=== PATIENT | female | born 1965 | race Caucasian/White ===

== ENCOUNTER 2023-07-14 18:08 | Emergency (ER) | payer MEDICAID ==
[~2023-07-14] VITALS: Ht 160 cm; Wt 80.1 kg
[~2023-07-14 18:08] MED LIST: AGG25C OR; BACL10TA OR; DIAZ2TAB2; FENO5TAB OR; GABA300C; GLIP10TA9 OR; IBUP-1456 OR; METF-371 OR; SIMV80TA2; TOPI50TA32 OR; [UNRECOGNIZED DRUG - OTHER]
[2023-07-14 18:15] VITALS: BP 130/64; PULSE 83; RESP 18; TEMP 98.7
[2023-07-14 19:59] VITALS: O2SAT 97
[2023-07-14] MEDS ORDERED: ONDANSETRON ODT 4 MG TAB PO ONE (21:00)
[2023-07-14] MEDS ORDERED: HYDROcodone-ACET 10/325MG TAB PO ONE (21:00)
== END 2023-07-14 23:00 | disposition home or self-care (01) ==
LOC: ER 18:08
DX: S62.666A Nondisplaced fracture of distal phalanx of right little finger, initial encounter for closed fracture (principal); E11.9 Type 2 diabetes mellitus without complications; E78.5 Hyperlipidemia, unspecified; I10 Essential (primary) hypertension; Z79.899 Other long term (current) drug therapy; Z98.890 Other specified postprocedural states; W01.0XXA Fall on same level from slipping, tripping and stumbling without subsequent striking against object, initial encounter; Y93.89 Activity, other specified; Y92.89 Other specified places as the place of occurrence of the external cause; Y99.8 Other external cause status
CPT/HCPCS: 26770; 73110; 73130; 73140; 99284; Q0162

== ENCOUNTER 2024-12-03 18:15 | Emergency (ER) | payer MEDICAID ==
[~2024-12-03] VITALS: Ht 160 cm; Wt 87.0 kg
--- NOTE | 2024-12-03 19:25 | DVH ---
EXAM: XY R WRIST 2 VIEW XRAY CLINICAL HISTORY: fall COMPARISON: XY R WRIST 3+ VIEW XRAY on DOS: 07/14/23 TECHNIQUE: XY R WRIST 2 VIEW XRAY Findings/Impression: 2 views of the right wrist. Nondisplaced fracture of the distal radius. There is no evidence of dislocation, blastic, or lytic lesions. No radiopaque foreign bodies. Mild soft tissue edema.
--- NOTE | 2024-12-03 20:04 | ED.PDOC ---
Musculoskeletal HPI Comments 59-year-old female complaining of right wrist pain. Patient states she had a trip and fall approximate six weeks ago. She had initial x-rays done at primary care doctor's office, results possibly not transmitted. Patient was fracture of the distal radius. Patient came in today for possible splint and ortho follow up. Patient reports she has been having continuous pain in the right wrist and she was not been using her/moving her wrist. Chief Complaint: Upper Extremity Time Seen by MD: 18:30 Primary Care Provider: ERIC Reviewed Notes: Nurses Notes Allergies: Coded Allergies: NO KNOWN ALLERGIES (Verified , 07/14/23) Home Meds Reported Medications Aspirin-Dipyridamole (Aggrenox) 1 Cap Cap, 1 CAP OR BID 09/04/11 Baclofen (Baclofen) 10 Mg Tab, 10 MG OR TID 09/04/11 Ibuprofen (Ibuprofen) 800 Mg Tab, 800 MG OR TIDP 09/04/11 Fenofibrate (Tricor) 145 Mg Tab, 145 MG OR DAILY 09/04/11 Glipizide (Glipizide) 10 Mg Tab, 10 MG OR BID 09/04/11 Metformin Hydrochloride (Metformin Hcl) 850 Mg Tab, 850 MG OR TID 09/04/11 Topiramate (Topamax) 50 Mg Tab, 50 MG OR BID 09/04/11 Simvastatin (Zocor) 80 Mg Tab 09/04/11 [Donezipil] No Conflict Check, 10 MG HS 09/04/11 Diazepam (Diazepam) 2 Mg Tab, TID 09/04/11 Gabapentin (Neurontin) 300 Mg Cap, TID 06/26/10 Information Source: Patient Mode of Arrival: Ambulatory Past Medical History PAST MEDICAL HISTORY: DM, High Lipids, HTN Surgical History: Tubal Ligation 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 Pertinent HANDLE SANDER OPERATOR History Family History Family History: Unknown Social History Smoker: Non-Smoker Alcohol: Denies ETOH Use Drugs: Denies Drug Use Lives In: Home Constitutional: denies: chills, diaphoresis, fatigue, fever, malaise, sweats, weakness, others EENTM: denies: blurred vision, double vision, ear bleeding, ear discharge, ear drainage, ear pain, ear ringing, eye pain, eye redness, hearing loss, mouth chana n, mouth swelling, nasal discharge, nose bleeding, nose congestion, nose pain, photophobia, tearing, throat pain, throat swelling, voice changes, others Respiratory: denies: cough, hemoptysis, orthopnea, SOB at rest, shortness of breath, SOB with excertion, stridor, wheezing, others Cardiovascular: denies: chest pain, dizzy spells, diaphoresis, Dyspnea on exertion, edema, irregular heart beat, left arm pain, lightheadedness, palpitations, PND, syncope, others Gastrointestinal: denies: abdomen distended, abdominal pain, blood streaked bowels, constipated, diarrhea, dysphagia, difficulty swallowing, hematemesis, melena, nausea, poor appetite, poor fluid intake, rectal bleeding, rectal pain, vomiting, others Genitourinary: denies: abnormal vagina bleeding, burning, dyspareunia, dysuria, flank pain, frequency, hematuria, incontinence, pain, , vagina discharge, urgency, others Neurological: denies: dizziness, fainting, headache, left sided numbness, left sided weakness, numbness, paresthesia, pre-existing deficit, right sided numbness, right sided weakness, seizure, speech problems, tingling, tremors, weakness, others Musculoskeletal: reports: muscle pain, muscle stiffness; denies: back pain, gout, joint pain, joint swelling, neck pain, others Integumetry: denies: bruises, change in color, change in hair/nails, dryness, laceration, lesions, lumps, rash, wounds, others Allergic/Immunocompromised: denies: Difficulty Healing, Frequent Infections, Hives, Itching, others Hematologic/Lymphatic: denies: anemia, blood clots, easy bleeding, easy bruising, swollen glands, others Physical Exam General Appearance: No Apparent Distress, Normal HEENT: Normal ENT Inspection, Pharynx Normal, TMs Normal Neck: Full Range of Motion, Non-Tender, Normal, Normal Inspection Respiratory: Chest Non-Tender, Lungs Clear, No Accessory Muscle Use, No Respiratory Distress, Normal Breath Sounds Cardiovascular: No Edema, No JVD, No Murmur, No Gallop, Normal Peripheral Pulses, Regular Rate/Rhythm Breast Exam: Deferred Gastrointestinal: No Organomegaly, Non Tender, No Pulsatile Mass, Normal Bowel Sounds, Soft Genitalia: Deferred Pelvic: Deferred Rectal: Deferred Extremities: No calf tenderness, Normal capillary refill, Normal inspection, Normal range of motion, Non-tender, No pedal edema Musculoskeletal : Location: Right Extremity Location: Wrist (Right wrist tender to palpation over the distal radius, no obvious deformity. Limited range of motion due to pain. Distal circulation motor skills intact.) Apperance: Normal Neurologic: Alert, transverse abdominal muscle surgeon II-XII nml as Tested, No Motor Deficits, Normal Affect, Normal Mood, No Sensory Deficits Cerebellar Function: Normal Reflexes: Normal Skin: Dry, Normal Color, Warm Peripheral Pulses: 2+ carotid (R), 2+ carotid (L) Lymphatic: No Adenopathy Was a procedure done? Was a procedure done?: No Differential Diagnosis EXT Differential Diagnosis: Fracture, Sprain, Dislocation, Laceration X-Ray, Labs, Meds, VS Vital Signs Date Time Temp Pulse Resp B/P (MAP) Pulse Ox O2 Delivery O2 Flow Rate FiO2 12/03/24 18:28 98.7 82 18 152/59 (90) 96 X-Ray, Labs, Meds, VS Comment Spoke with Dr. Nagel, print support specialist, he will see patient on Saturday, he recommends CT of the wrist. Patient will be placed in velcro wrist splint. Patient states she does have pain medications at home for previous injuries Time of 1ST Reevaluation: 20:04 Reevaluation 1ST: Unchanged Patient Education/Counseling: Diagnosis, Treatment, Need For Follow Up (Follow up with the doctor philip on Saturday for further evaluation.) Family Education/Counseling: Diagnosis Departure 1 Departure Time of Disposition: 20:02 Impression: Primary Impression: Distal radius fracture, right Qualified Codes: S52.531A - Colles' fracture of right radius, initial encounter for closed fracture Disposition: HOME / SELF CARE / HOMELESS Condition: Fair Comments Follow up with print support specialist on Saturday Critical Care Note Critical Care Time?: No Stability Stability form required: No Heart Score Heart Score: Heart Score Response (Comments) Value History N/A 0 EKG N/A 0 Age N/A 0 Risk Factors N/A 0 Troponin N/A 0 Total 0 AVINASH PERES Dec 03, 2024 20:04
[2024-12-03 20:10] VITALS: BP 150/63; PULSE 77; RESP 18; TEMP 97.6; O2SAT 95
--- NOTE | 2024-12-03 20:39 | DVH ---
EXAM: CT CT R WRIST WO CONTRAST INDICATION: fall EXAM DATE: 12/03/2024 07:56 PM COMPARISON: None TECHNIQUE: Multiple axial CT images of the right wrist were obtained using bone algorithm. Axial and coronal reformatting was done. Bone and soft tissue windows were reviewed. Radiation Dose Information: CT Dose: CTDI volume is 7.75 mGy. Dose-length product is 173.42 mGy*cm Findings/Impression: Nondisplaced, impacted fracture of the distal radius. Mild soft tissue edema. There is no evidence of dislocation, blastic, or lytic lesions. No radiopaque foreign bodies.
== END 2024-12-03 20:27 | disposition home or self-care (01) ==
LOC: ER 18:15
DX: S52.591A Other fractures of lower end of right radius, initial encounter for closed fracture (principal); I10 Essential (primary) hypertension; E11.9 Type 2 diabetes mellitus without complications; Z79.84 Long term (current) use of oral hypoglycemic drugs; Z98.51 Tubal ligation status; W01.0XXA Fall on same level from slipping, tripping and stumbling without subsequent striking against object, initial encounter; Y93.89 Activity, other specified; Y92.89 Other specified places as the place of occurrence of the external cause; Y99.8 Other external cause status
CPT/HCPCS: 29125; 73100; 73200